=== PATIENT | female | born 1995 | race Caucasian/White ===

== ENCOUNTER 2022-04-06 15:35 | Outpatient (CLI) | payer OTHER, SELFPAY | END 2022-04-06 15:36 | disposition home or self-care (01) | LOC: FRMREF 15:36 | PROVIDERS: PCP Physician Assistant Medical; Visit Provider Physician Assistant Medical | DX: Z01.419 Encounter for gynecological examination (general) (routine) without abnormal findings (principal); E03.9 Hypothyroidism, unspecified | CPT/HCPCS: 84443 ==

== ENCOUNTER 2023-05-10 14:55 | Outpatient (CLI) | payer OTHER, SELFPAY | END 2023-05-10 14:56 | disposition home or self-care (01) | LOC: LKVREF 14:56 | PROVIDERS: PCP Physician Assistant Medical; Visit Provider Physician Assistant | DX: N39.0 Urinary tract infection, site not specified (principal) | CPT/HCPCS: 87086 ==

== ENCOUNTER 2023-08-09 14:32 | Outpatient (CLI) | payer OTHER, SELFPAY | END 2023-08-09 14:33 | disposition home or self-care (01) | LOC: NFLDREF 08-15 16:13 | PROVIDERS: PCP Physician Assistant Medical; Referring Provider Physician Assistant Medical; Visit Provider Physician Assistant Medical | DX: E03.9 Hypothyroidism, unspecified (principal) | CPT/HCPCS: 84443 ==

== ENCOUNTER 2024-06-22 22:50 | Outpatient (REF) | payer OTHER, SELFPAY ==
[2024-06-22 23:56] LABS: Albumin* 4.3 g/dL (3.3-5.0)
[2024-06-22 23:59] LABS: Alkaline Phosphatase* 51 U/L (40-150); Aspartate Amino Transferase* 21 U/L (12-35); Bilirubin Direct* 0.3 mg/dL (0.0-0.5); Bilirubin Total* 0.6 mg/dL (0.1-1.5); Cholesterol* 156 mg/dL (90-199); HDL Cholesterol* 43 mg/dL (>=50); LDL Cholesterol Calculated 101 mg/dL (<100); Triglycerides* 61 mg/dL (40-149)
[2024-06-23] LABS: Alanine Aminotransferase* 10 U/L (4-35)
[2024-06-23 00:36] LABS: HCG Quantitative* < 2.39 mIU/mL
== END 2024-06-22 22:51 | disposition home or self-care (01) ==
LOC: NPINS 22:50
PROVIDERS: PCP Physician Assistant Medical; Visit Provider Allergy & Immunology
DX: L70.0 Acne vulgaris (principal); Z79.899 Other long term (current) drug therapy
CPT/HCPCS: 80061; 80076; 84702